=== PATIENT | female | born 1965 | race African-American/Black ===

== ENCOUNTER 2016-11-13 21:33 | Emergency (ER) | payer OTHER ==
[2016-11-13 21:45] VITALS: BP 97/52; PULSE 67; TEMP 97.7; BMI 28.3
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
[2016-11-14] MEDS ORDERED: AMOX TR/POT CLAV 875MG/125MG TABLETS (FP) PO ONE (00:20)
[2016-11-14] MEDS ORDERED: AMOX TR/POT CLAV 875MG/125MG TABLETS (FP) ONE (00:21)
== END 2016-11-14 00:28 | disposition home or self-care (01) ==
LOC: FER 21:33
PROC: 0HQFXZZ Repair Right Hand Skin, External Approach (ICD-10-PCS; principal; 2016-11-13)
DX: S61.210A Laceration without foreign body of right index finger without damage to nail, initial encounter (principal); Y04.2XXA Assault by strike against or bumped into by another person, initial encounter; Y93.89 Activity, other specified; Y92.9 Unspecified place or not applicable; F10.129 Alcohol abuse with intoxication, unspecified
CPT/HCPCS: 12001-25; 73140-TC-RT; 99282-25